=== PATIENT | male | born 1985 | race Caucasian/White ===

== ENCOUNTER 2018-12-24 11:50 | Inpatient (IN) | payer OTHER ==
[~2018-12-24] VITALS: Ht 188 cm; Wt 105.2 kg
[2018-12-24] MEDS ORDERED: POLYETHYLENE GLYCOL 3350 17 GM PACKET PO PRN (16:00)
[2018-12-24] MEDS ORDERED: ACETAMINOPHEN 325 MG TABLET PO PRN (16:00)
[2018-12-24] MEDS ORDERED: MAGNESIUM HYDROXIDE SUSPENSION 30 ML UDCUP PO PRN (16:00)
[2018-12-24] MEDS ORDERED: METHOCARBAMOL 750 MG TABLET PO SCH (16:00)
[2018-12-24] MEDS ORDERED: TiZANidine HCL 4 MG TABLET PO PRN (16:00)
[2018-12-24] MEDS: OxyCODONE HCL 5 MG IR TABLET PO PRN (17:07)
[2018-12-24 17:29] VITALS: BP 152/87
[2018-12-24] MEDS: DOCUSATE SODIUM 100 MG CAPSULE PO SCH (20:53)
[2018-12-24] MEDS: SENNA 187 MG TABLET PO SCH (20:53)
[2018-12-24] MEDS: -LIDODERM PATCH NOTE- MISC SCH (20:54)
[2018-12-24 23:32] VITALS: BP_SYST 125; BP_SYST 131; BP_DIAS 62; BP_DIAS 82
[2018-12-24] MEDS: OxyCODONE HCL 10 MG IR TABLET PO PRN (23:32)
[2018-12-25 07:31] VITALS: BP 137/88
[2018-12-25] MEDS: OxyCODONE HCL 5 MG IR TABLET PO PRN ×2 (07:31→16:32)
[2018-12-25 07:42] LABS: NEUTROPHILS # (AUTO) 5.5 K/uL (1.8-7.7); RED CELL DISTRIBUTION WIDTH 13.1 % (11.5-14.5)
[2018-12-25 07:47] LABS: ANION GAP 8 mmol/L (8-16); CALCIUM, TOTAL 8.9 mg/dL (8.8-10.5); CARBON DIOXIDE 26 mmol/L (22-29); CHLORIDE 104 mmol/L (98-107); CREATININE 0.86 mg/dL (0.60-1.30); GLOMERULAR FILTR. RATE CALC > 60 mL/min (>60); GLUCOSE,RANDOM 108 mg/dL (70-110); POTASSIUM 4.2 mmol/L (3.5-5.1); SODIUM SERUM 138 mmol/L (136-145); UREA NITROGEN, BLOOD 24 mg/dL (7-18)
[2018-12-25 07:54] LABS: BASOPHILS % (AUTO) 0.6 % (0.0-2.0); EOSINOPHILS % (AUTO) 2.2 % (1.0-6.0); HEMATOCRIT 46.2 % (41-53); LYMPHOCYTES # (AUTO) 2.2 K/uL (1.0-4.8); LYMPHOCYTES % (AUTO) 25.4 % (22.0-44.0); MEAN CORPUSCULAR HEMOGLOBIN 31.3 pg (26.0-34.0); MEAN CORPUSCULAR HGB CONC 34.7 G/dL (31.0-37.0); MEAN CORPUSCULAR VOLUME 90 fL (80-100); MONOCYTES # (AUTO) 0.6 K/uL (0.1-1.0); MONOCYTES % (AUTO) 7.6 % (2.0-9.0); NEUTROPHILS % (AUTO) 64.2 % (40.0-70.0); PLATELET COUNT (AUTO) 252 K/uL (150-450); RED BLOOD CELL COUNT(AUTO) 5.12 MIL/uL (4.50-5.90)
[2018-12-25] MEDS: ENOXAPARIN SODIUM 40 MG/0.4 ML PF SYRINGE SQ SCH (07:57)
[2018-12-25] MEDS: METHOCARBAMOL 750 MG TABLET PO SCH ×3 (07:58→21:02)
[2018-12-25] MEDS: DOCUSATE SODIUM 100 MG CAPSULE PO SCH ×2 (07:58→21:00)
[2018-12-25] MEDS: LIDOCAINE 5% TRANSDERMAL PATCH TD SCH (08:01)
[2018-12-25 08:24] LABS: ALANINE AMINOTRANSFERASE 83 U/L (12-78); ALBUMIN 3.6 g/dL (3.4-5.0); ALKALINE PHOSPHATASE 81 U/L (46-116); ASPARTATE AMINOTRANSFERASE 34 U/L (15-37); BILIRUBIN,TOTAL 1.1 mg/dL (0.1-1.0); TOTAL PROTEIN, SERUM 7.3 g/dL (6.4-8.2)
[2018-12-25 16:13] VITALS: BP 125/72
[2018-12-25] MEDS: SENNA 187 MG TABLET PO SCH (21:00)
[2018-12-25] MEDS: -LIDODERM PATCH NOTE- MISC SCH (21:00)
[2018-12-25] MEDS: OxyCODONE HCL 10 MG IR TABLET PO PRN (21:03)
[2018-12-26] VITALS: BP 129/78
[2018-12-26] MEDS: OxyCODONE HCL 10 MG IR TABLET PO PRN (02:18)
[2018-12-26] MEDS: LIDOCAINE 5% TRANSDERMAL PATCH TD SCH (09:00)
[2018-12-26 09:10] VITALS: BP 127/80
[2018-12-26] MEDS: OxyCODONE HCL 5 MG IR TABLET PO PRN (10:28)
[2018-12-26] MEDS: DOCUSATE SODIUM 100 MG CAPSULE PO SCH ×2 (10:28→21:06)
[2018-12-26] MEDS: ENOXAPARIN SODIUM 40 MG/0.4 ML PF SYRINGE SQ SCH (10:28)
[2018-12-26] MEDS: METHOCARBAMOL 750 MG TABLET PO SCH ×3 (10:28→21:07)
[2018-12-26 17:05] VITALS: BP 133/83
[2018-12-26] MEDS: -LIDODERM PATCH NOTE- MISC SCH (21:00)
[2018-12-26] MEDS: SENNA 187 MG TABLET PO SCH (21:07)
[2018-12-27 01:00] VITALS: BP 128/63
[2018-12-27 08:00] VITALS: BP 121/68
[2018-12-27] MEDS: METHOCARBAMOL 750 MG TABLET PO SCH ×3 (08:38→20:26)
[2018-12-27] MEDS: ENOXAPARIN SODIUM 40 MG/0.4 ML PF SYRINGE SQ SCH (08:38)
[2018-12-27] MEDS: LIDOCAINE 5% TRANSDERMAL PATCH TD SCH (08:39)
[2018-12-27] MEDS: DOCUSATE SODIUM 100 MG CAPSULE PO SCH ×2 (08:39→20:25)
[2018-12-27] MEDS: OxyCODONE HCL 5 MG IR TABLET PO PRN (15:12)
[2018-12-27 17:28] VITALS: BP 123/78
[2018-12-27] MEDS: -LIDODERM PATCH NOTE- MISC SCH (20:25)
[2018-12-27] MEDS: TraMADol HCL 50 MG TABLET PO PRN (20:25)
[2018-12-27] MEDS: SENNA 187 MG TABLET PO SCH (20:25)
[2018-12-27 23:00] VITALS: BP 131/76
[2018-12-28 07:28] VITALS: BP 132/78
[2018-12-28] MEDS: ENOXAPARIN SODIUM 40 MG/0.4 ML PF SYRINGE SQ SCH (08:47)
[2018-12-28] MEDS: DOCUSATE SODIUM 100 MG CAPSULE PO SCH ×2 (08:48→20:46)
[2018-12-28] MEDS: METHOCARBAMOL 750 MG TABLET PO SCH ×3 (08:48→20:46)
[2018-12-28] MEDS: LIDOCAINE 5% TRANSDERMAL PATCH TD SCH (08:53)
[2018-12-28] MEDS: TraMADol HCL 50 MG TABLET PO PRN (10:03)
[2018-12-28] MEDS: OxyCODONE HCL 5 MG IR TABLET PO PRN ×2 (12:15→16:25)
[2018-12-28 16:25] VITALS: BP 134/94
[2018-12-28] MEDS: -LIDODERM PATCH NOTE- MISC SCH (20:45)
[2018-12-28] MEDS: SENNA 187 MG TABLET PO SCH (20:47)
[2018-12-28 23:33] VITALS: BP 129/71
[2018-12-28] MEDS: OxyCODONE HCL 10 MG IR TABLET PO PRN (23:33)
[2018-12-29 07:50] VITALS: BP 131/84
[2018-12-29] MEDS: LIDOCAINE 5% TRANSDERMAL PATCH TD SCH (09:00)
[2018-12-29] MEDS: DOCUSATE SODIUM 100 MG CAPSULE PO SCH ×2 (09:07→20:46)
[2018-12-29] MEDS: METHOCARBAMOL 750 MG TABLET PO SCH ×3 (09:07→20:46)
[2018-12-29] MEDS: ENOXAPARIN SODIUM 40 MG/0.4 ML PF SYRINGE SQ SCH (09:08)
[2018-12-29 16:06] VITALS: BP 136/77
[2018-12-29] MEDS: SENNA 187 MG TABLET PO SCH (20:46)
[2018-12-29 23:19] VITALS: BP 129/77
[2018-12-29] MEDS: OxyCODONE HCL 5 MG IR TABLET PO PRN (23:19)
[2018-12-30 07:55] VITALS: BP 128/72
[2018-12-30] MEDS: ENOXAPARIN SODIUM 40 MG/0.4 ML PF SYRINGE SQ SCH (09:10)
[2018-12-30] MEDS: DOCUSATE SODIUM 100 MG CAPSULE PO SCH (09:11)
[2018-12-30] MEDS: METHOCARBAMOL 750 MG TABLET PO SCH ×3 (09:11→20:42)
[2018-12-30 16:04] VITALS: BP 129/85
[2018-12-30] MEDS: TraMADol HCL 50 MG TABLET PO PRN (20:42)
[2018-12-30] MEDS: SENNA 187 MG TABLET PO SCH (20:42)
[2018-12-30] MEDS: DOCUSATE SODIUM 250 MG CAPSULE PO SCH (20:42)
[2018-12-30 23:40] VITALS: BP 124/79
[2018-12-31] MEDS: OxyCODONE HCL 5 MG IR TABLET PO PRN (05:17)
[2018-12-31 08:15] VITALS: BP 125/78
[2018-12-31] MEDS: DOCUSATE SODIUM 250 MG CAPSULE PO SCH ×2 (08:24→20:14)
[2018-12-31] MEDS: METHOCARBAMOL 750 MG TABLET PO SCH ×3 (08:24→20:14)
[2018-12-31] MEDS: ENOXAPARIN SODIUM 40 MG/0.4 ML PF SYRINGE SQ SCH (08:24)
[2018-12-31] MEDS ORDERED: SENN8.6T90 PO (11:46)
[2018-12-31] MEDS ORDERED: METH750T4 PO (11:46)
[2018-12-31] MEDS ORDERED: DOCU-275 PO (11:46)
[2018-12-31 15:34] VITALS: BP 124/76
[2018-12-31] MEDS: SENNA 187 MG TABLET PO SCH (20:15)
[2018-12-31] MEDS: OxyCODONE HCL 10 MG IR TABLET PO PRN (22:06)
[2018-12-31] MEDS ORDERED: OXYC5 PO (22:09)
[2018-12-31 23:06] VITALS: BP 132/70
[2019-01-01 08:30] VITALS: BP 125/77
[2019-01-01] MEDS: ENOXAPARIN SODIUM 40 MG/0.4 ML PF SYRINGE SQ SCH (09:00)
[2019-01-01] MEDS: METHOCARBAMOL 750 MG TABLET PO SCH ×3 (09:17→20:29)
[2019-01-01] MEDS: DOCUSATE SODIUM 250 MG CAPSULE PO SCH (09:17)
[2019-01-01 16:28] VITALS: BP 130/71
[2019-01-01] MEDS: OxyCODONE HCL 10 MG IR TABLET PO PRN (23:43)
[2019-01-01 23:53] VITALS: BP 133/75
[2019-01-02 08:00] VITALS: BP 137/72
[2019-01-02] MEDS: METHOCARBAMOL 750 MG TABLET PO SCH (08:03)
[2019-01-02] MEDS: DOCUSATE SODIUM 250 MG CAPSULE PO SCH (08:04)
[2019-01-02] MEDS: ENOXAPARIN SODIUM 40 MG/0.4 ML PF SYRINGE SQ SCH (08:04)
[2019-01-02] MEDS: OxyCODONE HCL 5 MG IR TABLET PO PRN (08:04)
== END 2019-01-02 10:00 | disposition home or self-care (01) | DRG 552 ==
LOC: 2WR 11:50
DX: S22.089A Unspecified fracture of T11-T12 vertebra, initial encounter for closed fracture (principal); K59.03 Drug induced constipation; T40.2X5A Adverse effect of other opioids, initial encounter; Z82.49 Family history of ischemic heart disease and other diseases of the circulatory system; Z83.3 Family history of diabetes mellitus; V94.89XA Other water transport accident, initial encounter; Y93.89 Activity, other specified; Y92.89 Other specified places as the place of occurrence of the external cause; Y99.8 Other external cause status
CPT/HCPCS: 87081; 97110; 97116; 97150; 97163; 97166; 97530; 97535; 99366; J1650